=== PATIENT | female | born 1955 | race Caucasian/White ===

== ENCOUNTER → 2025-02-01 14:42 | Outpatient (REF) | payer MEDICARE, BC, SELFPAY | LOC: MRI 3T 14:42 | PROVIDERS: ATTENDING PHYSICIAN Family Medicine | DX: M54.50 Low back pain, unspecified (principal) | CPT/HCPCS: 72148 ==

== ENCOUNTER → 2025-02-18 14:33 | Outpatient (REF) | payer MEDICARE, BC, SELFPAY | LOC: RAD 14:33 | PROVIDERS: ATTENDING PHYSICIAN Physician Assistant Medical; FAMILY PHYSICIAN Family Medicine | DX: M54.9 Dorsalgia, unspecified (principal); Z98.890 Other specified postprocedural states | CPT/HCPCS: 72114 ==